=== PATIENT | male | born 1960 | race Caucasian/White ===

== ENCOUNTER 2017-10-22 08:05 | Emergency (ER) | payer OTHER ==
--- NOTE | 2017-10-22 08:18 | EDPHY ---
H & P Stated Complaint: lightheaded/2 days ago/?syncope hit r chest/pain chest to back /long flight Time Seen by Provider: 10/22/17 08:14 HPI/ROS: CHIEF COMPLAINT: Right chest pain, history of syncope HISTORY OF PRESENT ILLNESS: The patient presents to the ED for evaluation of 2 days of right-sided chest pain. The patient reportedly passed out on international flight 2 days ago. He reportedly developed syncope in the setting of a positional change. He fell striking his right chest wall. He did not his head or lose consciousness. The patient reports that he has continued to have ongoing right-sided chest pain which is worsened with axial rotation. He is unable to palpate a discrete area of discomfort. The patient denies any antecedent palpitations, chest pain or acute neurologic symptoms prior to his syncopal episode. The patient currently reports his symptoms are moderate in nature. The patient denies significant past medical history. REVIEW OF SYSTEMS: A comprehensive 10 point review of systems is otherwise negative aside from elements mentioned in the history of present illness. Source: Patient - Personal History Current Tetanus/Diphtheria Vaccine: No - Medical/Surgical History Hx Asthma: No Hx Chronic Respiratory Disease: No Hx Diabetes: No Hx Cardiac Disease: No Hx Renal Disease: No Hx Cirrhosis: No Hx Alcoholism: No Hx HIV/AIDS: No Hx Splenectomy or Spleen Trauma: No Other PMH: denies - Social History Smoking Status: Never smoked - Physical Exam Exam: General Appearance: Alert, mild discomfort with axial rotation Eyes: Pupils equal and round no pallor or injection ENT, Mouth: Mucous membranes moist Respiratory: There are no retractions, lungs are clear to auscultation Cardiovascular: Regular rate and rhythm Gastrointestinal: Abdomen is soft and nontender, no masses, bowel sounds normal Neurological: A&O, normal motor function, normal sensory exam, normal cranial nerves Skin: Warm and dry, no rashes Musculoskeletal: Neck is supple nontender Extremities: symmetrical, full range of motion Constitutional: Initial Vital Signs Temperature (C) 36.5 C 10/22/17 08:09 Heart Rate 71 10/22/17 08:09 Respiratory Rate 16 10/22/17 08:09 Blood Pressure 138/80 H 10/22/17 08:09 O2 Sat (%) 95 10/22/17 08:09 O2 Delivery Mode Room Air Allergies/Adverse Reactions: No Known Allergies Allergy (Unverified 10/22/17 08:07) Home Medications: Medication Instructions Recorded Advil 10/22/17 Medical Decision Making - Diagnostics EKG Interpretation: EKG: Complete interpretation has been separately recorded in the [employer] archive. Summary impression: Sinus rhythm, inferior Q-waves noted Imaging Results: Imaging Impressions Chest X-Ray 10/22/17 08:30 Impression: There is no acute intrathoracic abnormality identified. Chest/Thorax CTA 10/22/17 09:13 Impression: 1. There is no CT evidence of pulmonary artery thromboemboli. 2. Multinodular goiter, right lobe substantially larger than the left. Correlation with sonography and thyroid function tests is suggested. 3. Likely-benign 3.8 mm noncalcified nodule lateral right middle lobe. Please see the below algorithm for follow-up, as clinically directed. *[facility] [employer] RECOMMENDATIONS: For Follow Up and Management of Solid Nodules Detected Incidentally at CT Low Risk Patients (minimal or absent history of smoking, and of other known risk factors): Less than 6 mm------no follow up required. High Risk Patients (history of smoking or of other known risk factors): Less than 6 mm------ optional CT at 12 months. Findings were discussed with Jean May MD at 10:20, on 10/22/2017. ED Course/Re-evaluation: The patient presents to the ED with complaints of right chest pain following a syncopal episode a mechanical fall several days ago. The patient has no reproducible tenderness on exam. His EKG demonstrates a normal sinus rhythm with some inferior Q-waves. There is no prior EKG to compare to. The patient is noted to be hemodynamically stable. The patient's chest x-ray demonstrates no evidence of obvious injury. Given the non reproducible nature of his chest pain and prolonged travel I did screen him for thromboembolic disease with a D-dimer. This test came back positive. A follow-up CT angiogram demonstrates no evidence of PE, pneumothorax, rib fracture or pneumothorax. The patient was noted to have a thyroid nodule and 4 mm pulmonary nodule. I re-evaluated the patient at 10:50 a.m.. At this point time I do feel he is experiencing some pleurisy and possible intracostal strain from his fall. I will recommend nonsteroidal anti-inflammatories. Additionally, the patient has been given the contact number of our on-call primary care provider to schedule a follow-up appointment with to discuss the results of his CT scan which demonstrated thyroid nodules and a 4 mm lung nodule. The patient will be advised to return to the emergency department for any worsening symptoms or other concerns. Differential Diagnosis: Differential diagnosis considered includes pneumothorax, hemothorax, rib fracture, arrhythmia, myocardial infarction, pulmonary embolism, critical anemia , metabolic abnormality - Data Points Laboratory Results: Laboratory Results 10/22/17 08:35 10/22/17 08:35 10/22/17 10/22/17 10/22/17 08:35 08:35 08:35 WBC 9.52 10^3/uL H 10^3/uL (3.80-9.50) RBC 5.67 10^6/uL 10^6/uL (4.40-6.38) Hgb 17.7 g/dL H g/dL (13.7-17.5) Hct 51.4 % H % (40.0-51.0) MCV 90.7 fL fL (81.5-99.8) MCH 31.2 pg pg (27.9-34.1) MCHC 34.4 g/dL g/dL (32.4-36.7) RDW 13.5 % % (11.5-15.2) Plt Count 214 10^3/uL 10^3/uL (150-400) MPV 10.1 fL fL (8.7-11.7) Neut % (Auto) 51.6 % % (39.3-74.2) Lymph % (Auto) 39.6 % % (15.0-45.0) [place] % (Auto) 6.5 % % (4.5-13.0) Eos % (Auto) 1.8 % % (0.6-7.6) Baso % (Auto) 0.3 % % (0.3-1.7) Nucleat RBC Rel Count 0.0 % % (0.0-0.2) Absolute Neuts (auto) 4.91 10^3/uL 10^3/uL (1.70-6.50) Absolute Lymphs (auto) 3.77 10^3/uL H 10^3/uL (1.00-3.00) Absolute Monos (auto) 0.62 10^3/uL 10^3/uL (0.30-0.80) Absolute Eos (auto) 0.17 10^3/uL 10^3/uL (0.03-0.40) Absolute Basos (auto) 0.03 10^3/uL 10^3/uL (0.02-0.10) Absolute Nucleated RBC 0.00 10^3/uL 10^3/uL (0-0.01) Immature Gran % 0.2 % % (0.0-1.1) Immature Gran # 0.02 10^3/uL 10^3/uL (0.00-0.10) D-Dimer 0.59 ug/mLFEU H ug/mLFEU (0.00-0.50) Sodium 142 mEq/L mEq/L (135-145) Potassium 4.1 mEq/L mEq/L (3.5-5.2) Chloride 104 mEq/L mEq/L (97-110) Carbon Dioxide 26 mEq/l mEq/l (22-31) Anion Gap 12 mEq/L mEq/L (8-16) BUN 22 mg/dL mg/dL (7-23) Creatinine 1.0 mg/dL mg/dL (0.7-1.3) Estimated GFR > 60 Glucose 107 mg/dL H mg/dL (70-100) Calcium 10.2 mg/dL mg/dL (8.5-10.4) Troponin I < 0.012 ng/mL ng/mL (0.000-0.034) Departure - Departure Disposition: Home, Routine, Self-Care Clinical Impression: Contusion of chest, Thyroid nodule, Lung nodule Condition: Good Instructions: Contusion in Adults (ED) Additional Instructions: 1. Take Ibuprofen or Motrin 600 mg by mouth three times a day. 2. You have an incidentally noted thyroid nodule and lung nodule. I do recommend you schedule an appointment with a primary care provider to discuss follow-up of these conditions. 3. Your EKG and laboratory studies otherwise demonstrate no acute abnormality. Referrals: Laura José MD [[facility] Primary Care Provider] - As per Instructions
--- NOTE | 2017-10-22 08:25 | CPEKG ---
Heart Rate: 74 RR Interval: 811 P-R Interval: 192 QRSD Interval: 84 QT Interval: 364 QTC Interval: 404 P [place]: 43 QRS [place]: -43 T Wave [place]: 19 EKG Severity - ABNORMAL ECG - EKG Impression: SINUS RHYTHM EKG Impression: INFERIOR INFARCT, AGE INDETERMINATE Electronically Signed By: Jean May 22-Oct-2017 08:25:28
[2017-10-22 08:45] LABS: PLATELET COUNT 214 10^3/uL (150-400)
[2017-10-22] MEDS ORDERED: IOPAMIDOL (ISOVUE 370) 100 ML BTL IV ONE (09:19)
[2017-10-22 09:59] VITALS: RESP 18
[2017-10-22 11:07] VITALS: BP 117/80; PULSE 78; TEMP 98.4; O2SAT 96
== END 2017-10-22 11:05 | disposition home or self-care (01) ==
DX: S20.20XA Contusion of thorax, unspecified, initial encounter (principal); E04.1 Nontoxic single thyroid nodule; R91.1 Solitary pulmonary nodule; W01.198A Fall on same level from slipping, tripping and stumbling with subsequent striking against other object, initial encounter
CPT/HCPCS: Q9967